=== PATIENT | female | born 1985 | race Caucasian/White ===

== ENCOUNTER 2019-10-19 14:37 | Outpatient (CLI) | payer OTHER ==
--- NOTE | 2019-10-20 10:02 | Ultrasound Report ---
LIMITED ULTRASOUND OF LEFT BREAST: 10/19/2019 CLINICAL: Palpable left breast lump and focal pain. Comparison is made to exam dated: 09/30/2019 mammogram - [facility]. Ultrasound of was performed on the areas of interest. There is an oval mass in the left breast at 2 o'clock middle depth. This oval mass is hypoechoic. T his correlates as palpated and with mammography findings. There also is a simple cyst in the left breast at 10 o'clock posterior depth. This cyst is anechoic with posterior acoustic enhancement. This correlates with mammography findings. IMPRESSION: SUSPICIOUS OF MALIGNANCY The oval mass in the left breast at 2 o'clock middle depth likely represents a fibroadenoma and is at a low suspicion for malignancy. An ultrasound guided biopsy is recommended. The cyst in the left breast at 10 o'clock posterior depth is benign. Future imaging is recommended as follows: 04/01/2020 follow-up right ultrasound. This exam was interpreted at Station ID: [id number]. Electronically Signed By: Roma Escobedo M.D. lk/:10/19/2019 15:12:26 Ultrasound BI-RADS: 4a Low suspicion for malignancy BI-RADS CATEGORY: (4a) - Low Susp Biopsy follow-up [id number] Immediate follow-up LATERALITY: (B)
== END 2019-10-19 14:38 | disposition home or self-care (01) ==
LOC: DI 14:37
PROVIDERS: ATTEND Internal Medicine
DX: N63.21 Unspecified lump in the left breast, upper outer quadrant (principal); N60.02 Solitary cyst of left breast
CPT/HCPCS: 76642

== ENCOUNTER 2019-11-14 13:06 | Outpatient (CLI) | payer OTHER ==
[2019-11-14] MEDS ORDERED: BUPIVACAINE 0.5%-EPI 1:200000 PF 30 ML VIAL SUBQ SCH (14:00)
[2019-11-14] MEDS ORDERED: BUFFERED LIDOCAINE 10 ML SYRINGE ONE (14:11)
[2019-11-14] MEDS ORDERED: BUFFERED LIDOCAINE 10 ML SYRINGE IU ONE (16:28)
--- NOTE | 2019-11-16 07:21 | Mammography Report ---
UNILATERAL LEFT DIGITAL DIAGNOSTIC MAMMOGRAM 3D/2D: 11/14/2019 CLINICAL: Post left breast ultrasound biopsy clip placement imaging. Comparison is made to exams dated: 11/14/2019 ultrasound biopsy, 10/19/2019 ultrasound, 09/30/2019 ultr asound, 09/30/2019 mammogram, and 04/22/2019 ultrasound - [facility]. The tissue of left breast is extremely dense, which lowers the sensitivity of mammography. IMPRESSION: POST PROCEDURE MAMMOGRAM FOR MARKER PLACEMENT Future imaging is recommended as follows: 04/01/2020 follow-up right ultrasound. The biopsy site marker is in expected position upper outer left breast after core biopsy procedure do ne under US guidance earlier same day. This exam was interpreted at Station ID: [id number]. NOTE: For mammograms, a report in lay terms will be sent to the patient. Approximately 15% of breast malignancies will not be visualized mammographically. In the management of a palpable breast mass, a negative mammogram must not discourage biopsy of a clinically suspicious lesion. Electronically Signed By: Bao Hayden M.D. sdh/:11/15/2019 13:19:20 ACR BI-RADS Category Post-procedure mammogram for marker placement PARENCHYMAL PATTERN: (VD) - The breast(s) demonstrate(s) extremely dense parenchyma, limiting the sen sitivity of mammography. BI-RADS CATEGORY: () - Unspecified - other recall n/a LATERALITY: (B)
--- NOTE | 2019-11-18 13:54 | Ultrasound Report ---
ULTRASOUND GUIDED BIOPSY LEFT BREAST WITH MARKING DEVICE INSERTED AND POST MAMMOGRAPHIC AND ULTRASOUN D IMAGIN11/14/2019 CLINICAL: Left breast mass. PATIENT CONSENT: Risks (minor bleeding, infection, vasovagal reaction and repeat procedure), benefits and alternatives were explained to the patient and written informed consent was obtained. Correlation is made to exams dated: 10/19/2019 ultrasound, 09/30/2019 ultrasound, 09/30/2019 mammogram, and 04/22/2019 ultrasound - [facility]. An ultrasound guided biopsy using real-time ultrasound was performed for the concerning 0.5 cm x 0.4 cm x 0.3 cm circumscribed oval solid mass located in the left breast at 2 o'clock middle depth. This was described on the previous ultrasound report. The skin was prepped in the usual manner. Lidocai ne, buffered was used and then Lidocaine with epinepherine near and beneath the mass. Attempted aspi ration of the mass using deep anesthesia needle did not yield fluid. A skin radha was made in the stan ast at the superficial area of initial lidocaine injection. The abnormality was approached from the lateral aspect. A 10 gauge biopsy needle was placed adjacent to the abnormality through an introduce r device under ultrasound guidance. Once the needle was documented to be in the correct location, fo ur cores were obtained using a BARD biopsy device. A Celero clip was inserted into the biopsy cavity . A skin closure strip and a sterile dressing were applied to the access site. Post procedure mammo graphic and ultrasound imaging demonstrates the location device at the targeted area and partial esthela sophia of the abnormality. The specimens were sent to the laboratory for pathological analysis. IMPRESSION: ULTRASOUND GUIDED BIOPSY BENIGN Ultrasound guided biopsy of the 0.5 cm x 0.4 cm x 0.3 cm solid mass in the left breast at 2 o'clock m iddle depth was successful. Pathology indicates benign sclerosing adenosis (SA). Pathology results are concordant with ultrasound findings. Recommend return to screening mammography of the left breast. A follow-up right ultrasound in 6 months is recommended to demonstrate stability of the complicated c ysts seen on prior ultrasound. Future imaging is recommended as follows: 04/01/2020 follow-up right ultrasound. This exam was interpreted at Station ID: [id number]. Bao Gunderson M.D. [facility],ddp/:11/17/2019 16:57:39 BI-RADS CATEGORY: () - Ultrasound [id number] 6 month follow-up LATERALITY: (R)
== END 2019-11-14 13:07 | disposition home or self-care (01) ==
LOC: DI 13:06
PROVIDERS: ATTEND Internal Medicine
DX: N60.22 Fibroadenosis of left breast (principal); N60.82 Other benign mammary dysplasias of left breast
CPT/HCPCS: 19083

== ENCOUNTER 2020-01-31 16:05 | Emergency (ER) | payer OTHER ==
[2020-01-31 16:12] VITALS: BP 160/97
--- NOTE | 2020-01-31 16:30 | ED Physician Documentation ---
History of Present Illness - Stated complaint Stated Complaint: LT FOOT INJ - Chief complaint Chief Complaint: Trauma Ext - Additonal information Additional information: 34-year-old female presents the emergency department with acute left foot pain. She is an employee here [employer]. She dropped an x-ray cassette on her distal foot while at work this afternoon. She has swelling at the distal metatarsals just before the third and fourth toes. There is mid nearly full weight. No history of previous injury. Review of Systems Constitutional: reports: Reviewed and negative Eyes: reports: Reviewed and negative Ears: reports: Reviewed and negative Nose: reports: Reviewed and negative Throat: reports: Reviewed and negative Cardiac: reports: Reviewed and negative Respiratory: reports: Reviewed and negative GI: reports: Reviewed and negative : reports: Reviewed and negative Skin: reports: Reviewed and negative Musculoskeletal: reports: Joint pain, Reviewed and negative (foot) PD PAST MEDICAL HISTORY - Past Medical History Cardiovascular: None Respiratory: None Neuro: None Endocrine/Autoimmune: None GI: None 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 : None HEENT: None Psych: None Musculoskeletal: None Derm: None - Past Surgical History Past Surgical History: No - Present Medications Home Medications: Ambulatory Orders Medication Instructions Recorded Confirmed No Known Home Medications 01/31/20 01/31/20 - Allergies Allergies/Adverse Reactions: Allergies Allergy/AdvReac Type Severity Reaction Status Date / Time No Known Drug Allergies Allergy Verified 01/31/20 16:12 - Social History Does the pt smoke?: Yes Smoking Status: Current every day smoker Does the pt drink ETOH?: No Does the pt have substance abuse?: No - Immunizations Immunizations are current?: Yes PD ED PE EXPANDED - Extremities Extremities: Left foot (Swelling and ecchymosis to distal third and fourth meta tarsals. No deformity. 2+ DP pulse. Bears nearly full weight..) Results - Vitals Vitals: Vital Signs - 24 hr 01/31/20 16:10 Temperature 36.0 C L Heart Rate 98 Respiratory 16 Rate Blood Pressure 160/97 H O2 Saturation 98 Oxygen O2 Source Room air - Rads (name of study) left foot Radiology: Final report received (Soft tissue swelling in the forefoot over the third and fourth metatarsals. 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 Though there is swelling she has a nearly normal gait with a mild limp. No obvious fracture identified on x-ray. This likely represents a contusion. Patient's foot placed in an Casey wrap and she will be returned to normal duty. Departure - Departure Disposition: 01 Home, Self Care Clinical Impression: Contusion of left foot Qualifiers: Encounter type: initial encounter Qualified Code(s): S90.32XA - Contusion of left foot, initial encounter Condition: Stable Record reviewed to determine appropriate education?: Yes Comments: Leana the x-ray of your foot looks good. We do not see anything broken. You do have a bruise or contusion which I expect to be sore for the next 7 to 10 days. If you find that you are having worsening pain or that it is failing to improve would like you to be reevaluated and reimaged
--- NOTE | 2020-01-31 16:30 | XRAY Report ---
PROCEDURE: Foot 3 View LT INDICATIONS: Trauma TECHNIQUE: 3 views of the foot were acquired. COMPARISON: None FINDINGS: Bones: No fractures or dislocations. No suspicious bony lesions. Soft tissues: Mild soft tissue swelling overlying the third and fourth distal metatarsals and MTP ahmet ints no tibiotalar joint effusion. Achilles tendon appears normal. IMPRESSION: Soft tissue swelling in the forefoot over the third and fourth metatarsals. No acute fracture. Reviewed by: Edgardo Armenta MD on 01/31/2020 4:28 PM [facility] Approved by: Edgardo Armenta MD on 01/31/2020 4:28 PM [facility] Station ID: [id number]
== END 2020-01-31 16:57 | disposition home or self-care (01) ==
LOC: ED 16:05
DX: S90.32XA Contusion of left foot, initial encounter (principal); W20.8XXA Other cause of strike by thrown, projected or falling object, initial encounter; Y92.239 Unspecified place in hospital as the place of occurrence of the external cause; Y99.0 Civilian activity done for income or pay; F17.200 Nicotine dependence, unspecified, uncomplicated
CPT/HCPCS: 99281; 99283

== ENCOUNTER 2020-12-28 07:32 | Outpatient (CLI) | payer OTHER ==
--- NOTE | 2020-12-31 08:20 | Ultrasound Report ---
LIMITED ULTRASOUND OF LEFT BREAST: 12/28/2020 CLINICAL: Diffuse left breast pain. Short term follow up for the left breast. Comparison is made to exams dated: 12/28/2020 mammogram, 11/14/2019 ultrasound biopsy, 11/14/2019 mamm ogram, 10/19/2019 ultrasound, 09/30/2019 ultrasound, and 09/30/2019 mammogram - [facility] nter. Color flow and real-time ultrasound of the left breast 2 o'clock and 10 o'clock regions were performe d. Zuniga scale images of the real-time examination were reviewed. There is a benign 0.5 cm x 0.5 cm x 0.2 cm oval mass in the left breast at 2 o'clock middle depth 6 c m from the nipple. This oval mass is hypoechoic. This abnormality is decreased in size and correlat es to the reported pain and with the previous biopsy. Color flow imaging demonstrates that there is no vascularity present. There also is a benign 2.2 cm x 1.7 cm x 0.9 cm simple cyst in the left breast at 10 o'clock posterio r depth 3 cm from the nipple. This simple cyst is anechoic. This abnormality is increased in size a nd correlates with mammography findings. IMPRESSION: BENIGN There is no sonographic evidence of malignancy. The 0.5 cm mass in the left breast at 2 o'clock middle depth at the site of prior biopsy and pain is decreased in size and is benign. The 2.2 cm simple cyst in the left breast at 10 o'clock posterior depth is benign. Return to annual mammogram schedule is recommended. Of note, 6 month follow-up ultrasound of the right breast was recommended. Exam findings were conveyed to the patient. Patient is advised to monitor for significant change. Cli nical follow-up as needed. This exam was interpreted at Station ID: [id number]. Electronically Signed By: Jef Kay M.D. slc/:12/28/2020 10:28:33 Ultrasound BI-RADS: 2 Benign BI-RADS CATEGORY: (2) - 2 RECOMMENDATION: (ANNUAL) - Recommend routine annual screening mammography. [id number] return to screening LATERALITY: (B)
--- NOTE | 2020-12-31 08:20 | Ultrasound Report ---
LIMITED ULTRASOUND OF RIGHT BREAST: 12/28/2020 CLINICAL: Short term follow up of the right breast. Comparison is made to exams dated: 12/28/2020 mammogram, 11/14/2019 ultrasound biopsy, 11/14/2019 mamm ogram, 10/19/2019 ultrasound, 09/30/2019 ultrasound, and 09/30/2019 mammogram - [facility] nter. Color flow and real-time ultrasound of the right breast 5-6 o'clock and 12 o'clock regions were perfo rmed. Zuniga scale images of the real-time examination were reviewed. There is a 2.5 cm x 2.4 cm x 1.4 cm oval cyst with a septated internal wall in the right breast at 5 o'clock middle depth 3 cm from the nipple. This oval cyst is anechoic with a well-defined boundary. This abnormality is increased in size. Color flow imaging demonstrates that there is no vascularity present. The cyst in the right breast at 6 o'clock anterior depth is no longer seen. Additionally, there is a 4.7 cm x 4.4 cm x 1.5 cm oval simple cyst in the right breast at 12 o'clock anterior depth 1 cm from the nipple. This oval simple cyst is anechoic. This abnormality is increas ed in size and correlates with mammography findings. Color flow imaging demonstrates that there is n o vascularity present. IMPRESSION: PROBABLY BENIGN 1) The 2.5 cm complicated cyst in the right breast at 5 o'clock middle depth is probably benign. -A follow-up ultrasound in 6 months is recommended. 2) The 4.7 cm simple cyst in the right breast at 12 o'clock anterior depth is benign. -A cyst aspiration for symptomatic relief could be considered. Exam findings were conveyed to the patient. Patient is advised to monitor for significant change. Cli nical follow-up as needed. This exam was interpreted at Station ID: [id number]. Electronically Signed By: Jef Kay M.D. [facility]/:12/28/2020 10:17:37 Ultrasound BI-RADS: 3 Probably benign BI-RADS CATEGORY: (3) - 3 Ultrasound [id number] 6 month follow-up LATERALITY: (R)
--- NOTE | 2020-12-31 08:20 | Mammography Report ---
BILATERAL DIGITAL DIAGNOSTIC MAMMOGRAM 3D/2D: 12/28/2020 CLINICAL: Focal left breast pain. Comparison is made to exams dated: 11/14/2019 ultrasound biopsy, 11/14/2019 mammogram, 10/19/2019 ultra sound, 09/30/2019 ultrasound, 09/30/2019 mammogram, and 04/22/2019 ultrasound - [facility] nter. The tissue of both breasts is extremely dense, which lowers the sensitivity of mammography. There is a 3.6 cm oval cyst in the right breast at 1 o'clock middle depth. This is increased in size and correlates to the area of reported pain. Cyst previously described as 12:00 and was simple. There also is a 2.9 cm cyst in the right breast at 5 o'clock anterior depth. This is increased in si ze. Cyst previously described as complicated. There is a 1.3 cm cyst in the left breast at 10 o'clock anterior depth. This is increased in size. Cyst previously simple. No other significant masses or calcifications are seen in either breast. IMPRESSION: INCOMPLETE: NEEDS ADDITIONAL IMAGING EVALUATION The 3.6 cm cyst in the right breast at 1 o'clock middle depth is indeterminate. The 2.9 cm cyst in the right breast at 5 o'clock anterior depth is indeterminate. The 1.3 cm cyst in the left breast at 10 o'clock anterior depth is indeterminate. Focal pain in the left breast 2 o'clock region is indeterminate. A targeted ultrasound is recommended and will immediately follow. This exam was interpreted at Station ID: [id number]. NOTE: For mammograms, a report in lay terms will be sent to the patient. Approximately 15% of breast malignancies will not be visualized mammographically. In the management of a palpable breast mass, a negative mammogram must not discourage biopsy of a clinically suspicious lesion. Electronically Signed By: Jef Kay M.D. slc/:12/28/2020 09:13:25 ACR BI-RADS Category 0: Incomplete [id number] PARENCHYMAL PATTERN: (VD) - The breast(s) demonstrate(s) extremely dense parenchyma, limiting the sen sitivity of mammography. BI-RADS CATEGORY: (0) - 0 Ultrasound [id number] Immediate follow-up LATERALITY: (B)
== END 2020-12-28 07:33 | disposition home or self-care (01) ==
LOC: DI 07:32
PROVIDERS: ATTEND Family Medicine
DX: N64.4 Mastodynia (principal); N63.21 Unspecified lump in the left breast, upper outer quadrant; N60.02 Solitary cyst of left breast; N60.01 Solitary cyst of right breast

== ENCOUNTER 2021-02-15 20:01 | Emergency (ER) | payer OTHER ==
[2021-02-15] MEDS ORDERED: SODIUM CHLORIDE 0.9% 1,000 ML IV STA ×2 (21:09→21:16)
[2021-02-15] MEDS ORDERED: ONDANSETRON 4 MG/2 ML VIAL IVP STA (21:09)
[2021-02-15] MEDS ORDERED: diphenhydrAMINE INJ 50 MG/ML VIAL IVP STA (21:10)
--- NOTE | 2021-02-15 21:16 | ED Physician Documentation ---
History of Present Illness - Stated complaint Stated Complaint: BODY RASH, NAUSEA, VOMITING - Chief complaint Chief Complaint: Allergic Rx - Additonal information Additional information: 36-year-old female presents the emergency department with 2 days of uncontrolled nausea and vomiting. No fevers. Stated when she got off work yesterday she just began to vomit uncontrollably. Doubts the possibility of as her is infertile. She has some generalized abdominal discomfort/nausea but no focal tenderness. No surgical history. This afternoon she developed a generalized maculopapular rash on her face neck abdomen arms and legs. She did take some Benadryl but it did not improve the rash. Denies chest pain or any shortness of air. Denies any pertinent past medical history. Denies dysuria urgency or frequency. No tongue or lip swelling. No blistering rash. Review of Systems Constitutional: denies: Fever, Chills Eyes: reports: Reviewed and negative Nose: reports: Reviewed and negative Throat: reports: Reviewed and negative Cardiac: reports: Reviewed and negative Respiratory: reports: Reviewed and negative GI: reports: Nausea, Vomiting. denies: Abdominal Pain, Constipation, Diarrhea : denies: Dysuria, Frequency, Hesitancy Skin: reports: Rash. 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 HEENT: None Psych: None Musculoskeletal: None Derm: None - Past Surgical History Past Surgical History: No - Present Medications Home Medications: Ambulatory Orders Medication Instructions Recorded Confirmed Ondansetron Odt [Zofran] 4 mg TL Q6H PRN #10 tablet 02/15/21 - Allergies Allergies/Adverse Reactions: Allergies Allergy/AdvReac Type Severity Reaction Status Date / Time No Known Drug Allergies Allergy Verified 02/15/21 20:04 - Social History Does the pt smoke?: Yes Smoking Status: Current every day smoker Does the pt drink ETOH?: No Does the pt have substance abuse?: No - Immunizations Immunizations are current?: Yes PD ED PE EXPANDED - General General: Alert, No acute distress - Neck Neck: Supple w/out meningeal sx. No: Adenopathy - Cardiac Cardiac: Regular Rate, Radial strong equal, Pedal strong equal, Cap refill < 2 sec - Respiratory Respiratory: Clear to ausultation sridhar. No: Distress, Labored - Abdomen Abdomen: Normal Bowel sounds. No: Tender to palpation (No abdominal tenderness elicited with deep or light palpation no tenderness with percussion.) - Derm Derm: Normal color, Warm and dry, Rash (Faint raised maculopapular rash present on the neck arms torso and legs. Sparing of the oral mucosa palms and soles of the feet. Nonurticarial) - Extremities Extremities: Normal. No: Deformity - Neuro Neuro: Alert and Oriented X 3, CNII-XII intact - GCS Eye Opening: Spontaneous Motor: Obeys Commands Verbal: Oriented Total: 15 Results - Vitals Vitals: Vital Signs - 24 hr 02/15/21 02/15/21 20:04 21:04 Temperature 36.5 C Heart Rate 132 H 103 H Respiratory 16 16 Rate Blood Pressure 128/70 123/80 O2 Saturation 98 96 Oxygen O2 Source Room air - Labs Labs: Laboratory Tests 02/15/21 02/15/21 21:20 21:20 Sodium 134 L Potassium 3.6 Chloride 101 Carbon Dioxide 22 Anion Gap 11.0 BUN 16 Creatinine 0.6 Estimated GFR (MDRD) 114 Glucose 118 H Calcium 8.9 Total Bilirubin 1.0 AST 21 ALT 31 Alkaline Phosphatase 59 Total Protein 7.5 Albumin 4.3 Globulin 3.2 Albumin/Globulin Ratio 1.3 Lipase 22 Urine Color YELLOW Urine Clarity CLEAR Urine pH 5.5 Ur Specific Gates >=1.030 H Urine Protein NEGATIVE Urine Glucose (UA) NEGATIVE Urine Ketones 40 H Urine Occult Blood NEGATIVE Urine Nitrite NEGATIVE Urine Bilirubin NEGATIVE Urine Urobilinogen 0.2 (NORMAL) Ur Leukocyte Esterase NEGATIVE Ur Microscopic Review NOT INDICATED Urine Culture Comments NOT INDICATED Urine HCG, Qual NEGATIVE PD MEDICAL DECISION MAKING - ED course Complexity details: reviewed results, re-evaluated patient, d/w patient ED course: 36-year-old female presents emergency department for 2 days of nausea and vomiting. No diarrhea. No focal abdominal pain no fevers. Screening labs showed no significant worrisome abnormalities. Patient was given a liter of IV fluids as well as Zofran with marked improvement in symptoms and now tolerating p.o.'s before being discharged home. She also reported she developed a faint maculopapular rash on her neck arms t orso and legs. This is nonblistering. Nonspecific. Patient was given some Decadron here in the emergency department which markedly improved to the pruritus. Patient is advised to continue the Benadryl at home. Emergent return precautions were discussed for failure of symptoms to improve. Prescription for Zofran was sent to the [facility] in [place]. Departure - Departure Disposition: Home, Self Care Clinical Impression: Rash and nonspecific skin eruption Nausea and vomiting Qualifiers: Vomiting type: unspecified Qualified Code(s): R11.2 - Nausea with vomiting, unspecified Condition: Stable Record reviewed to determine appropriate education?: Yes Instructions: ED Diet Vomiting Wwo Diarrhea Ch Prescriptions: Ondansetron Odt [Zofran] 4 mg TL Q6H PRN #10 tablet PRN Reason: Nausea / Vomiting Comments: Leana you were seen in the ED today for 2 days of nausea and vomiting. I suspect you have a mild virus causing the nausea and vomiting. Your urine showed no infection. Your blood count and electrolytes were essentially normal. You also have developed a rash. This is very non specific and the cause is not certain. It could be an allergic reaction to soaps or lotions, but can also be seen in viral illness You were given decadron in the ED which should help with rash and itch. I do recommend that you take the benadryl twice daily for the next 2-3 days. If yoru rash develops blisters or forms in yoru mouth, return immediately to the ED Please take frequent sips of clear liquids over the next 24 hours. I have sent a prescription for zofran to the [facility] in [place]. If despite the zofran your vomiting continues or you develop suddenly severe abdominal pain, then please return to the ED for a second look
[2021-02-15] MEDS ORDERED: CHERRY SYRUP 10 ML UDC PO ONE (21:17)
[2021-02-15] MEDS ORDERED: DEXAMETHASONE 10 MG/ML VIAL PO STA (21:17)
[2021-02-15 21:30] LABS: BASOPHILS % (AUTO) 0.1 %; HCT - HEMATOCRIT 41.5 % (37.0-47.0); HGB - HEMOGLOBIN 14.4 g/dL (12.0-16.0); LYMPHOCYTES # (AUTO) 0.6 10^3/uL (1.5-3.5); LYMPHOCYTES % (AUTO) 6.8 %; MEAN CORPUSCULAR HEMOGLOBIN 31.8 pg (27.0-31.0); MEAN CORPUSCULAR HGB CONC 34.7 g/dL (32.0-36.0); MEAN CORPUSCULAR VOLUME 91.6 fL (81.0-99.0); MEAN PLATELET VOLUME 10.4 fL (7.9-10.8); MONOCYTES # (AUTO) 0.4 10^3/uL (0.0-1.0); MONOCYTES % (AUTO) 4.8 %; NEUTROPHILS # (AUTO) 7.3 10^3/uL (1.5-6.6); NEUTROPHILS % (AUTO) 87.9 %; PLT - PLATELET COUNT 261 10^3/uL (130-450); RED BLOOD COUNT 4.53 10^6/uL (4.20-5.40); RED CELL DISTRIBUTION WIDTH 12.2 % (12.0-15.0); WHITE BLOOD COUNT 8.3 x10^3/uL (4.8-10.8)
[2021-02-15 21:33] LABS: BILIRUBIN,URINE NEGATIVE (NEGATIVE); GLUCOSE, URINE (UA) NEGATIVE (NEGATIVE); KETONES,URINE (UA) 40 mg/dL (NEGATIVE); LEUKOCYTE ESTERASE, URINE NEGATIVE (NEGATIVE); NITRITE,URINE NEGATIVE (NEGATIVE); OCCULT BLOOD,URINE NEGATIVE (NEGATIVE); PH,URINE 5.5 PH (5.0-7.5); PROTEIN,URINE NEGATIVE (NEGATIVE); UROBILINOGEN,URINE 0.2 (NORMAL) E.U./dL (NORMAL)
[2021-02-15 21:42] LABS: CLARITY,URINE CLEAR (CLEAR); HCG UR QUAL NEGATIVE
[2021-02-15 21:45] LABS: ALBUMIN 4.3 g/dL (3.2-5.5); ALBUMIN/GLOBULIN RATIO 1.3 (1.0-2.2); CALCIUM 8.9 mg/dL (8.5-10.3); CREATININE 0.6 mg/dL (0.4-1.0); POTASSIUM 3.6 mmol/L (3.5-5.0); TOTAL PROTEIN 7.5 g/dL (6.7-8.2)
[2021-02-15 22:30] VITALS: BP 108/72
== END 2021-02-15 22:30 | disposition home or self-care (01) ==
LOC: ED 20:01
DX: R11.2 Nausea with vomiting, unspecified (principal); R21 Rash and other nonspecific skin eruption; F17.200 Nicotine dependence, unspecified, uncomplicated
CPT/HCPCS: 36415; 80053; 81003; 81025; 83690; 85025; 96374; 96375; 99283; 99284; A9270; J1200; 81001; 87086

== ENCOUNTER 2021-10-30 12:47 | Outpatient (CLI) | payer OTHER ==
--- NOTE | 2021-10-31 10:34 | Ultrasound Report ---
LIMITED ULTRASOUND OF RIGHT BREAST: 10/30/2021 CLINICAL: 6 month follow-up of cysts. Comparison is made to exams dated: 12/28/2020 ultrasound, 12/28/2020 ultrasound, 12/28/2020 mammogra m, 11/14/2019 ultrasound biopsy, 11/14/2019 mammogram, and 10/19/2019 ultrasound - [facility]. Color flow ultrasound of the right breast 5 o'clock region was performed. Zuniga scale images of the r eal-time examination were reviewed. There is a benign 3.2 cm x 2.4 cm x 1.4 cm oval cyst with a septated internal wall in the right breas t at 5 o'clock middle depth 3 cm from the nipple. This oval cyst is anechoic with a well-defined lady ndary. This abnormality is increased in size. Color flow imaging demonstrates that there is no vasc ularity present. IMPRESSION: BENIGN There is no sonographic evidence of malignancy. The right breast cyst has increased slightly in size but is otherwise similar with no suspicious verónica d features or vascularity. No additional follow-up is needed. If there is a desire for aspiration/daisha inage due to discomfort, then this would be appropriate. This exam was interpreted at Station ID: [id number]. Electronically Signed By: Edgardo Armenta M.D. jr/:10/30/2021 13:11:49 Ultrasound BI-RADS: 2 Benign BI-RADS CATEGORY: (2) - 2 Unspecified - other recall n/a LATERALITY: (B)
== END 2021-10-30 12:48 | disposition home or self-care (01) ==
LOC: DI 12:47
PROVIDERS: ATTEND Student in an Organized Health Care Education/Training Program
DX: N60.01 Solitary cyst of right breast (principal)

== ENCOUNTER 2022-10-29 09:23 | Outpatient (CLI) | payer SELFPAY | END 2022-10-29 09:24 | disposition home or self-care (01) | LOC: DI 09:23 | DX: Z53.9 Procedure and treatment not carried out, unspecified reason (principal) ==